=== PATIENT | female | born 1965 | race Caucasian/White ===

== ENCOUNTER 2023-05-05 17:14 | Emergency (ER) | payer OTHER ==
[~2023-05-05] VITALS: Ht 152.4 cm; Wt 65.8 kg
[2023-05-05] MEDS ORDERED: ALPRAZolam 0.25 MG TAB PO ONE (17:35)
== END 2023-05-05 20:13 | disposition home or self-care (01) ==
LOC: ED 17:14
DX: F41.9 Anxiety disorder, unspecified (principal); R10.9 Unspecified abdominal pain; Z88.0 Allergy status to penicillin; Z88.5 Allergy status to narcotic agent; Z90.49 Acquired absence of other specified parts of digestive tract